=== PATIENT | male | born 1975 | race Caucasian/White ===

== ENCOUNTER 2017-03-25 05:49 | Emergency (ER) | payer MEDICAID ==
[~2017-03-25] VITALS: Ht 175.3 cm; Wt 136.5 kg
[~2017-03-25 05:49] MED LIST: CARI250T; CELE200C PO; CETI10CA PO; DIPH25CA61; DIPH25CA61 PO; GABA300C10 PO; GABA600T2 PO; HYDR-3240; LAMO200T3 PO; LORA10TA3; OMEP-110 PO; RANI150C PO; TIZA2TAB PO
[2017-03-25] MEDS ORDERED: KETOROLAC 30 MG/1 ML ONE (06:02)
[2017-03-25] MEDS ORDERED: KETOROLAC 30 MG/1 ML IM ONE (06:30)
[2017-03-25 06:47] VITALS: BP 142/80
== END 2017-03-25 06:49 | disposition home or self-care (01) ==
LOC: ED 06:43
DX: S90.31XA Contusion of right foot, initial encounter (principal); I10 Essential (primary) hypertension; W22.8XXA Striking against or struck by other objects, initial encounter; Y93.01 Activity, walking, marching and hiking; Y92.098 Other place in other non-institutional residence as the place of occurrence of the external cause; Y99.8 Other external cause status
CPT/HCPCS: 73630; 96372; 99284; J1885

== ENCOUNTER 2018-03-23 19:56 | Emergency (ER) | payer MEDICAID ==
[~2018-03-23] VITALS: Ht 175.3 cm; Wt 131.4 kg
[2018-03-23 20:00] VITALS: BP 160/102
== END 2018-03-23 20:41 | disposition home or self-care (01) ==
LOC: ED 20:35
DX: K08.89 Other specified disorders of teeth and supporting structures (principal); K21.9 Gastro-esophageal reflux disease without esophagitis; E66.9 Obesity, unspecified; Z87.891 Personal history of nicotine dependence
CPT/HCPCS: 99283

== ENCOUNTER 2018-06-29 21:25 | Emergency (ER) | payer MEDICAID ==
[~2018-06-29] VITALS: Ht 175.3 cm; Wt 126.6 kg
[~2018-06-29 21:25] MED LIST changes: +BUPR1FIL5 SL; +METH5TAB6 PO
[2018-06-29 21:27] VITALS: BP 123/80
[2018-06-29] MEDS ORDERED: KETOROLAC 30 MG/1 ML ONE (21:49)
[2018-06-29] MEDS ORDERED: METHOCARBAMOL 750 MG TABLET ONE (21:49)
[2018-06-29] MEDS ORDERED: METHOCARBAMOL 750 MG TABLET PO ONE (22:00)
[2018-06-29] MEDS ORDERED: KETOROLAC 30 MG/1 ML IM ONE (22:00)
== END 2018-06-29 22:14 | disposition home or self-care (01) ==
LOC: ED 21:55
DX: S29.012A Strain of muscle and tendon of back wall of thorax, initial encounter (principal); F31.9 Bipolar disorder, unspecified; K21.9 Gastro-esophageal reflux disease without esophagitis; E66.01 Morbid (severe) obesity due to excess calories; Z68.39 Body mass index [BMI] 39.0-39.9, adult; W01.0XXA Fall on same level from slipping, tripping and stumbling without subsequent striking against object, initial encounter; Y93.89 Activity, other specified; Y92.89 Other specified places as the place of occurrence of the external cause; Y99.8 Other external cause status
CPT/HCPCS: 72072; 96372; 99284; J1885

== ENCOUNTER 2018-08-30 11:18 | Emergency (ER) | payer MEDICAID ==
[~2018-08-30] VITALS: Ht 175.3 cm; Wt 124.5 kg
[2018-08-30 11:38] VITALS: BP 136/85
[2018-08-30] MEDS ORDERED: IBUPROFEN 200 MG TABLET PO ONE (12:00)
[2018-08-30] MEDS ORDERED: IBUPROFEN 200 MG TABLET ONE (12:15)
== END 2018-08-30 12:43 | disposition home or self-care (01) ==
LOC: ED 12:40
DX: S60.221A Contusion of right hand, initial encounter (principal); X58.XXXA Exposure to other specified factors, initial encounter; Y93.89 Activity, other specified; Y92.009 Unspecified place in unspecified non-institutional (private) residence as the place of occurrence of the external cause; Y99.8 Other external cause status
CPT/HCPCS: 29125

== ENCOUNTER 2019-09-30 14:28 | Emergency (ER) | payer MEDICAID ==
[~2019-09-30] VITALS: Ht 175.3 cm; Wt 130.6 kg
[~2019-09-30 14:28] MED LIST changes: -GABA600T2 PO; +GABA600T7 PO; +LORA-247; -LORA10TA3; -TIZA2TAB PO; +TIZA2TAB2 PO
[2019-09-30 14:59] VITALS: BP 126/79
--- NOTE | 2019-09-30 15:17 | NUR ---
PT TO ROOM FROM LOBBY
--- NOTE | 2019-09-30 15:17 | NUR ---
PT STATES "I HURT MY RIGHT WRIST 4 DAYS AGO. I WAS AT PHYSICAL THERAPY USING MY HANDS TO HOLD MYSELF UP. I DON'T KNOW IF THAT WAS IT." NADN. NO C/O TRAUMA
[2019-09-30 15:55] LABS: BASOPHILS # (AUTO) 0.01 x10^3/uL (0-0.1); BASOPHILS % (AUTO) 0 % (0-1); EOSINOPHILS # (AUTO) 0.22 x10^3/uL (0-0.4); EOSINOPHILS % (AUTO) 3 % (1-7); LYMPHOCYTES % (AUTO) 21 % (22-44); MD NO; MEAN CORPUSCULAR HEMOGLOBIN 28.9 pg (27.5-34.5); MEAN CORPUSCULAR HGB CONC 33.8 g/dL (33.2-36.2); MEAN CORPUSCULAR VOLUME 85.5 fL (81-97); MEAN PLATELET VOLUME 6.7 fL (7.4-10.4); MONOCYTES # (AUTO) 0.47 x10^3/uL (0.2-0.8); MONOCYTES % (AUTO) 7 % (2-9); NEUTROPHILS # (AUTO) 4.71 x10^3/uL (1.8-6.8); NEUTROPHILS % (AUTO) 69 % (42-75); PLATELET COUNT 243 x10^3/uL (130-400); RED BLOOD COUNT 4.76 x10^6/uL (4.38-5.82)
[2019-09-30 16:00] LABS: ALBUMIN 3.9 g/dL (3.4-5.0); ANION GAP 7 mmol/L (5-15); CALCIUM 9.9 mg/dL (8.5-10.1); CHLORIDE 108 mmol/L (98-107); CREATININE 1.01 mg/dL (0.7-1.3)
[2019-09-30] MEDS ORDERED: KETOROLAC 30 MG/1 ML ONE (16:29)
[2019-09-30] MEDS ORDERED: KETOROLAC 30 MG/1 ML IM ONE (17:00)
--- NOTE | 2019-09-30 17:26 | NUR ---
Patient/Caregiver given discharge instructions and they have confirmed that they understand the instructions. Patient ambulatory with steady gait. PT LEFT WITH ALL PERSONAL BELONGINGS.
== END 2019-09-30 17:28 | disposition home or self-care (01) ==
LOC: ED 17:00
DX: S63.521A Sprain of radiocarpal joint of right wrist, initial encounter (principal); M13.131 Monoarthritis, not elsewhere classified, right wrist; M10.9 Gout, unspecified; K21.9 Gastro-esophageal reflux disease without esophagitis; Z87.891 Personal history of nicotine dependence; Z90.89 Acquired absence of other organs; X58.XXXA Exposure to other specified factors, initial encounter; Y93.89 Activity, other specified; Y92.89 Other specified places as the place of occurrence of the external cause; Y99.8 Other external cause status
CPT/HCPCS: 29125; 36415; 73110; 80048; 82040; 84550; 85025; 96372; 99284; J1885

== ENCOUNTER 2019-12-23 01:02 | Emergency (ER) | payer MEDICAID | END 2019-12-23 01:25 | disposition left against medical advice (07) | LOC: MERGE 01:02 → ED 01:19 | DX: M25.531 Pain in right wrist (principal); Z53.21 Procedure and treatment not carried out due to patient leaving prior to being seen by health care provider ==

== ENCOUNTER 2019-12-23 01:09 | Emergency (ER) | payer MEDICAID ==
[~2019-12-23] VITALS: Ht 175.3 cm; Wt 132.0 kg
[2019-12-23 01:14] VITALS: BP 131/74
== END 2019-12-23 02:44 | disposition home or self-care (01) ==
LOC: ED 02:09
DX: S62.356A Nondisplaced fracture of shaft of fifth metacarpal bone, right hand, initial encounter for closed fracture (principal); K21.9 Gastro-esophageal reflux disease without esophagitis; E66.9 Obesity, unspecified; Z68.41 Body mass index [BMI] 40.0-44.9, adult; Z87.891 Personal history of nicotine dependence; X58.XXXA Exposure to other specified factors, initial encounter; Y93.89 Activity, other specified; Y92.098 Other place in other non-institutional residence as the place of occurrence of the external cause; Y99.8 Other external cause status
CPT/HCPCS: 29125; 99284

== ENCOUNTER 2020-09-29 23:50 | Emergency (ER) | payer MEDICAID ==
[~2020-09-29] VITALS: Ht 175.3 cm; Wt 120.0 kg
[~2020-09-29 23:50] MED LIST changes: +TIZA-106 PO; -TIZA2TAB2 PO
[2020-09-29 23:53] VITALS: BP 135/76
[2020-09-30] MEDS ORDERED: BUPIVACAINE 0.25% ONE (00:24)
[2020-09-30] MEDS ORDERED: LIDOCAINE-MPF 1%, 2ML ONE (00:25)
[2020-09-30] MEDS ORDERED: LIDOCAINE 1%, 2ML INFIL ONE (00:30)
[2020-09-30] MEDS ORDERED: BUPIVACAINE 0.25% INFIL ONE (00:30)
--- NOTE | 2020-09-30 01:01 | NUR ---
Patient given discharge instructions and they have confirmed that they understand the instructions. Patient ambulatory with steady gait.
== END 2020-09-30 01:04 | disposition home or self-care (01) ==
LOC: ED 09-30 01:00
DX: K08.89 Other specified disorders of teeth and supporting structures (principal); Z90.49 Acquired absence of other specified parts of digestive tract; Z87.891 Personal history of nicotine dependence
CPT/HCPCS: 64400; 99284